=== PATIENT | female | born 1990 | race American Indian/Alaskan Native ===

== ENCOUNTER 2017-01-03 04:23 | Emergency (ER) | payer OTHER ==
[2017-01-03 04:33] VITALS: BP 120/71
--- NOTE | 2017-01-03 05:35 | Emergency Department Report ---
HPI - General Chief Complaint: Allergic Reaction Time Seen by Provider: 01/03/17 05:20 - HPI HPI: Patient is a 26-year-old female presents to ED complaining of having hives over her body . Patient states she noticed while she was at work yesterday.. Patient states hives are generalized and started on}. Patient states those are resolved now and another group of hives show up on her neck patient states mild itching of the eyes. Patient states she does not recall coming to contact with anything or ingested anything different. ED Past Medical Hx - Past Medical History Previous Medical History?: No - Surgical History Past Surgical History?: No - Social History Smoking Status: Never Smoker Substance Use Type: Alcohol - Medications Home Medications: Home Medications Medication Instructions Recorded Confirmed Last Taken Type Hydroxyzine HCl 25 mg PO QHS #20 tablet 01/03/17 Unknown Rx Triamcinolone 0.1% [Kenalog 0.1% 1 applic TP TID #1 tube 01/03/17 Unknown Rx CREAM] ED Review of Systems ROS: Stated complaint: ALLERGIC REACTION Other details as noted in HPI Constitutional: denies: chills, fever Eyes: denies: eye pain, eye discharge, vision change ENT: denies: ear pain, throat pain Respiratory: denies: cough, shortness of breath, wheezing Cardiovascular: denies: chest pain, palpitations Endocrine: no symptoms reported Gastrointestinal: denies: abdominal pain, nausea, diarrhea Genitourinary: denies: urgency, dysuria, discharge Musculoskeletal: denies: back pain, joint swelling, arthralgia, myalgia Skin: pruritus. denies: rash, lesions Neurological: denies: headache, weakness, numbness, paresthesias, confusion Psychiatric: denies: anxiety, depression Hematological/Lymphatic: denies: easy bleeding, easy bruising Physical Exam - Physical Exam Vital Signs: Vital Signs 01/03/17 04:27 Temperature 98.4 F Pulse Rate 65 Respiratory 18 Rate Blood Pressure 120/71 Blood Pressure 120/71 [Right] O2 Sat by Pulse 98 Oximetry Physical Exam: GENERAL: Alert and oriented x3, actively scratching whelps, Normal Gait, atraumatic. HEAD: Head is normocephalic and a-traumatic. EYES: Extra ocular muscles are intact. Pupils are equal, round, and reactive to light and accommodation. MOUTH:Mouth is well hydrated and without lesions. Tonsils nonerythematous but mildly swollen, Uvula midline, Tongue not elevated. Mucous membranes are moist. Posterior pharynx clear, no exudate or lesions. Patent airways. LUNGS: Symetrical with respiration, No wheezing, no rales or crackles, CTAB. HEART: S1, S2 present, regular rate and rhythm without murmur, no rubs, no gallops. Non tender to palpation ABDOMEN: No organomegaly was noted,Positive bowel sounds, soft, and non- distended. . Nontender to palpation on all Quadrants, NO CVA tenderness. SKIN: Warm and dry, raised, hive seen on right shoulder and the back of her neck, No other lesions, No ulceration or induration present. ED Course Vital Signs 01/03/17 04:27 Temperature 98.4 F Pulse Rate 65 Respiratory 18 Rate Blood Pressure 120/71 Blood Pressure 120/71 [Right] O2 Sat by Pulse 98 Oximetry ED Medical Decision Making - Medical Decision Making 26-year-old female presents with the allergic reaction/contact dermatitis ED course: Patient received prednisone in the ED Patient will be sent home on trial of Benadryl, Discussed the patient to follow instructions as given Discussed symptoms will resolve on its own vital signs are stable patient is in no acute distress. She had an on uneventful ED stay Critical care attestation.: If time is entered above; I have spent that time in minutes in the direct care of this critically ill patient, excluding procedure time. ED Disposition Clinical Impression: Contact dermatitis Qualifiers: Contact dermatitis type: unspecified Contact dermatitis trigger: other trigger Qualified Code(s): L25.8 - Unspecified contact dermatitis due to other agents Disposition: DC-01 TO HOME OR SELFCARE Is pt being admited?: No Does the pt Need Aspirin: No Condition: Stable Instructions: Contact Dermatitis (ED) Additional Instructions: Follow-up with primary care physician Prescriptions: Hydroxyzine HCl 25 mg PO QHS #20 tablet Triamcinolone 0.1% [Kenalog 0.1% CREAM] 1 applic TP TID #1 tube Referrals: PRIMARY CARE,MD [Primary Care Provider] - 3-5 Days [facility] [Outside] - 3-5 Days [facility] [Outside] - 3-5 Days [facility] [Outside] - 3-5 Days Forms: Work/School Release Form(ED) Time of Disposition: 06:15
[2017-01-03] MEDS ORDERED: DELTASONE PO ONE (05:42)
[2017-01-03] MEDS ORDERED: DECADRON IM ONE (05:42)
== END 2017-01-03 06:14 | disposition home or self-care (01) ==
LOC: ED 04:23
DX: L25.8 Unspecified contact dermatitis due to other agents (principal)
CPT/HCPCS: 96372; 99282; J1100